=== PATIENT | female | born 1970 | race Caucasian/White ===

== ENCOUNTER 2016-10-27 19:37 | Emergency (ER) | payer OTHER ==
[~2016-10-27 19:37] MED LIST: AMITRIPTYLINE H50 MG PO; ATIVAN2 MG PO; CYMBALTA; ELIQUIS5 MG PO; KLONOPIN0.5 MG; LAMICTAL PO; PROZAC40 MG PO; SEROQUEL; TAMBOCAR PO; TOPROL XL PO
== END 2016-10-27 20:02 | disposition home or self-care (01) ==
LOC: SED 19:37
DX: T23.222A Burn of second degree of single left finger (nail) except thumb, initial encounter (principal); I48.91 Unspecified atrial fibrillation; F41.9 Anxiety disorder, unspecified; F32.9 Major depressive disorder, single episode, unspecified; X19.XXXA Contact with other heat and hot substances, initial encounter; Y92.009 Unspecified place in unspecified non-institutional (private) residence as the place of occurrence of the external cause
CPT/HCPCS: 16020; 99283

== ENCOUNTER → 2016-11-16 | Outpatient (CLI) | payer OTHER ==
--- NOTE | ~2016-11-16 | US6 ---
[facility] A Service of [facility] RADIOLOGY TEXT RESULTS PATIENT: SALTY MITTAL LOCATION: [facility] : 70 UNIT #: [id number] AGE: [address]: Cherie Ma SEX: F ORDER DR: [id number] [address] [address] [id number] MR#: [id number] Acc #: [id number] NAME: SALTY MITTAL : 1970 SEX: F STUDY DATE/TIME: 11/16/2016 8:02 UNIT: [facility] ROOM: STUDY DESCRIPTION: US Abdominal Limited Attending Physician: Cherie Ma A.P.R.N. Referring Physician: Cherie aM A.P.R.N. Ordering Physician: Cherie Ma A.P.R.N. Primary Care Physician: Trevin Castro M.D. MEDICAL IMAGING REPORT This report is preliminary unless electronic signature is present. EXAM Right quadrant abdominal ultrasound, 11/16/2016 HISTORY Physician's order states generalized abdominal pain. Patient's history states right upper quadrant pain which began 2 weeks ago, pain in the right upper quadrant when she takes a breath in. Patient states pain has stopped since 2 weeks ago. Abnormal elevated liver enzymes for 5 days. COMPARISON Abdominal ultrasound 02/15/2016. CT chest 02/25/2011. FINDINGS The pancreas is largely obscured by bowel gas. The liver demonstrates a coarsened echotexture which is nonspecific but may represent changes of mild diffuse hepatic steatosis. No focal liver lesion is identified on today's examination. No ascites is seen. Main portal vein is patent. Intrahepatic IVC, to the extent visualized, has an unremarkable castorena-scale appearance. Liver size is within normal limits measuring about 16.8 cm in the sagittal plane. The gallbladder is free of shadowing stone, sludge, wall thickening or pericholecystic fluid. The common bile duct caliber is within normal limits, 2.0 mm. No intrahepatic biliary ductal dilation is seen. Right kidney measures approximately 10.1 cm in length. A cyst is seen within the anterior right mid to upper renal pole measuring up to 1.7 cm. It is slightly larger than on the 02/14/2006 examination where it measured 1.4 cm. No shadowing right renal stone or hydronephrosis is seen. IMPRESSION 1. 1.7 cm right renal cyst, very slightly larger than on the 2005 examination where it measured 1.4 cm. 2. Coarsened hepatic echotexture is nonspecific, favored to represent changes of hepatic steatosis. No focal liver lesion is seen. 3. Normal sonographic appearance of the gallbladder. No biliary STS. [facility] A Service of [facility] RADIOLOGY TEXT RESULTS PATIENT: SALTY MITTAL LOCATION: [facility] : 70 UNIT #: [id number] AGE: [address]: Cherie Ma SEX: F ORDER DR: colleen. 4. The pancreas is obscured by bowel gas. Dictated by... Carol Fried M.D. THIS IS AN ELECTRONICALLY VERIFIED REPORT Carol Fried M.D. at 11/16/2016 9:41 AM Lm TD: 11/16/2016 08:56 JOB #: [id number] MEDICAL IMAGING REPORT Page 1 of 1
== END | disposition home or self-care (01) ==
LOC: SGUS 07:55
DX: R10.84 Generalized abdominal pain (principal); N28.1 Cyst of kidney, acquired
CPT/HCPCS: 76705